=== PATIENT | male | born 1945 | race Caucasian/White ===

== ENCOUNTER 2017-12-27 08:08 | Emergency (ER) | payer OTHER ==
[~2017-12-27] VITALS: Ht 165.1 cm; Wt 61.2 kg
== END 2017-12-27 12:25 | disposition home or self-care (01) ==
LOC: ER 08:08
DX: M62.830 Muscle spasm of back (principal)

== ENCOUNTER 2021-12-26 07:15 | Inpatient (IN) | payer OTHER ==
[~2021-12-26] VITALS: Ht 165.1 cm; Wt 74.8 kg
[2022-01-09] MEDS ORDERED: DUI500 PO (16:30)
[2022-01-09] MEDS ORDERED: PERCOCET 5-3251 EACH PO (16:30)
[2022-01-09] MEDS ORDERED: ELIQUIS2.5 MG PO (16:30)
== END 2022-01-09 17:34 | disposition home or self-care (01) | DRG 470 ==
LOC: O/R 01-07 05:40 → SURH 01-07 07:15 → SURG 01-07 19:38
PROVIDERS: ADMIT Orthopaedic Surgery; ATTEND Orthopaedic Surgery
PROC: 0SRD0J9 Replacement of Left Knee Joint with Synthetic Substitute, Cemented, Open Approach (ICD-10-PCS; principal; 2022-01-07 14:30)
DX: M17.12 Unilateral primary osteoarthritis, left knee (principal); D62 Acute posthemorrhagic anemia; M22.12 Recurrent subluxation of patella, left knee; Z96.652 Presence of left artificial knee joint; Z20.822 Contact with and (suspected) exposure to COVID-19